=== PATIENT | female | born 2000 | race Caucasian/White ===

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

== ENCOUNTER 2020-06-26 12:19 | Emergency (ER) | payer OTHER, SELFPAY ==
--- OUTSIDE RECORDS SUMMARY | 2020-06-26 12:22 | XMS REPORT | Continuity of Care Document ---
:2000 Author Organization [facility] t Address [address] [place] [address] Care Team Providers Name Role Phone Nathalia GAYLE F Attending Clinician Orlnado GAYLE R Attending Clinician Visit, Nurse Attending Clinician Unavailable Problems Condition Condition Condition Status Onset Resolution Last Treating Co mments Source Name Details Category Date Date Treatment Clinician Date Asthma, Asthma, Problem Active [facility] unspecifie unspecifie Jazmin kes - d asthma d asthma Memori a severity, severity, l unspecifie unspecifie Ou tpati d whether d whether ent complicate complicate Cl inics d, d, unspecifie unspecifie d whether d whether persistent persistent Seasonal Seasonal Problem [facility] allergic [facility] - rhinitis, rhinitis, Magno terrance unspecifie unspecifie l d trigger d trigger Outp ati ent Clinics Migraine Migraine Problem Active [facility] without without [facility] - status status Memoria migrainosu migrainosu l s, not s, not Outpati intractabl intractabl en t e, e, Clinics unspecifie unspecifie d migraine d migraine type type Cervicalgi Cervicalgi Diagnosis Active [facility] - [facility] Out[facility] Clinics Other Other Problem Active [facility] chronic chronic [facility] - pain pain Mem[facility] l Outpati ent Clinics Low back Low back Diagnosis Active [facility] pain pain [facility] Clinics Problem Active [facility] in second in second Luke s - trimester trimester Magno terrance with with l anti-A anti-A Outpati sensitizat sensitizat en t ion, ion, Clinics single or single or unspecifie unspecifie d fetus d fetus Allergic Allergic Problem Active [facility] rhinitis, rhinitis, Luke s - unspecifie unspecifie Me moria d d l seasonalit seasonalit Ou tpati y, y, ent unspecifie unspecifie Cl inics d trigger d trigger Allergies, Adverse Reactions, Alerts Allergy Allergy Status Severity Reaction(s) Onset Inactive Treating Comm ents Source Name Type Date Date Clinician dragonfr Adverse Active Info Not [facility] uit Reaction Available [facility] passionf Adverse Active Info Not [facility] ruit Reaction Available [facility] ent [facility] Medications Ordered Filled Start Stop Current Ordering Indication Dosage Frequency Signature Comments Components Source Medication Medication Date Date Medication? Clinician (SIG) Name Name Fluticasone Fluticasone Yes Crispin 1 spray in [facility] St Propionate Propionate 11-07 Linda each Jazmin kes - 00:00: nostril Memoria 00 [employer] ent [facility] Carbinoxami Carbinoxami 2019- No Crispin [address] [facility] [address] ne Maleate ne Maleate 11-07 Linda as needed [facility] - 00:00: 00:00 Memoria 00 :00 [employer] ent [facility] ProAir HFA ProAir HFA Yes Crispin (Prior [facility] Linda Auth: Rx [facility] - Ref#:[id number] Memoria 6) [employer] ent [facility] Select-OB+D Select-OB+D Yes Crispin (Prior [facility] St NICHOLS NICHOLS Linda Auth: Rx [facility] - Ref#:[id number] Memoria 7) [employer] ent [facility] Procedures This patient has no known procedures. Encounters Start End Encounter Admission Attending Care Care Encounter Source Date/Time Date/Time Type Type Clinicians Facility Department ID 2019-10-25 2019-10-25 Emergency Nathalia [facility] [id number] 12:51:21 16:51:00 Priyank Farfan [id number] [place] [id number] [place] [id number] 2019-09-25 2019-09-25 [id number] 00:00:00 00:00:00 Jonathan Cantu [employer]PORATE COMMUNICATIONS SPECIALIST [id number] REGIONAL [id number] MATERNAL [id number] & CHILD 107 [facility] 2019-08-12 2019-08-12 Nurse Visit, [facility] [id number] 14:42:15 15:14:38 Visit [facility] CORPORATE COMMUNICATIONS SPECIALIST [id number] Nurse [facility] [id number] MATERNAL [id number] & CHILD 107 [facility] 2018-11-07 2018-11-07 [facility] [id number] 15:30:00 15:30:00 [facility] Family Medicine Medicine Outpati ent Clinics Results This patient has no known results.
--- NOTE | 2020-06-26 13:58 | RAD REPORT ---
EXAM DESCRIPTION: RAD - Chest Pa And Lat (2 Views) - 06/26/2020 1:33 pm CLINICAL HISTORY: right pleuritic chest pain;Cough Chest pain. COMPARISON: No comparisons FINDINGS: The lungs are clear. The heart is normal in size. No displaced fractures. IMPRESSION: No acute or concerning finding suspected.
--- NOTE | 2020-06-26 14:31 | ER ---
Nurse's Notes [facility] Name: Tommy Crow Age: 19 yrs Sex: Female : 2000 Arrival Date: 06/26/2020 Time: 12:23 Bed 20 Private MD: Diagnosis: Cough Presentation: 06/26 12:36 Chief complaint: Patient states: reports productive coughing for a week and half that em causes dizziness, denies fever or any other symptoms. Coronavirus screen: Client denies travel out of the [place] in the last 14 days. cough unrelated to allergies. Ebola Screen: Patient negative for fever greater than or equal to 101.5 degrees Fahrenheit, and additional compatible Ebola Virus Disease symptoms Patient denies exposure to infectious person. Patient denies travel to an Ebola-affected area in the 21 days before illness onset. No symptoms or risks identified at this time. Initial Sepsis Screen: Does the patient meet any 2 criteria? No. Patient's initial sepsis screen is negative. Does the patient have a suspected source of infection? No. Patient's initial sepsis screen is negative. Risk Assessment: Do you want to hurt yourself or someone else? Patient reports no desire to harm self or others. Onset of symptoms was June 26, 2020. 12:36 Method Of Arrival: Ambulatory em 12:36 Acuity: SIDNEY 4 em Triage Assessment: 12:45 General: Appears in no apparent distress. uncomfortable, Behavior is cooperative, bp appropriate for age, anxious. Pain: Denies pain. EENT: No deficits noted. Neuro: No deficits noted. Cardiovascular: No deficits noted. Respiratory: Reports shortness of breath cough that is Onset: The symptoms/episode began/occurred at an unknown time. the patient has mild shortness of breath. GI: No signs and/or symptoms were reported involving the gastrointestinal system. : No signs and/or symptoms were reported regarding the genitourinary system. Derm: No deficits noted. Musculoskeletal: No deficits noted. 15:10 Respiratory: the patient has mild shortness of breath. 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 - Social history:: Smoking status: Patient denies any tobacco usage or history of. - Family history:: not pertinent. - Hospitalizations: : No recent hospitalization is reported. Screenin:36 Abuse screen: Denies threats or abuse. Nutritional screening: No deficits noted. em Tuberculosis screening: No symptoms or risk factors identified. Fall Risk None identified. Assessment: 12:36 General: Appears in no apparent distress. comfortable, Behavior is calm, cooperative, em appropriate for age, Denies fever. Pain: Complains of pain in chest Pain currently is 4 out of 10 on a pain scale. Neuro: Level of Consciousness is awake, alert, obeys commands, Oriented to person, place, time, situation, Appropriate for age. Cardiovascular: Capillary refill < 3 seconds Patient's skin is warm and dry. Rhythm is regular. Respiratory: Reports cough that is productive, pain with cough Airway is patent Respiratory effort is even, unlabored, Respiratory pattern is regular, symmetrical, Breath sounds are clear bilaterally. Derm: Skin is intact, is healthy with good turgor, Skin is pink, warm \T\ dry. Musculoskeletal: Capillary refill < 3 seconds, Range of motion: intact in all extremities. 14:03 Reassessment: Patient appears in no apparent distress at this time. Patient and/or em family updated on plan of care and expected duration. Pain level reassessed. Patient is alert, oriented x 3, equal unlabored respirations, skin warm/dry/pink. 15:12 Reassessment: PT D/C HOME AMBULATORY, DX WITH VIRAL URI. bp Vital Signs: 12:36 BP 126 / 63; Pulse 89; Resp 18; Temp 97.9; Pulse Ox 100% on R/A; Weight 54.43 kg; em Height 5 ft. 8 in. (172.72 cm); Pain 7/10; 15:00 BP 117 / 63; Pulse 85; Resp 17; Temp 98; Pulse Ox 100% on R/A; bp 12:36 Body Mass Index 18.25 (54.43 kg, 172.72 cm) em ED Course: 12:23 Patient arrived in ED. ag5 12:36 Patient has correct armband on for positive identification. Placed in gown. em 12:38 Triage completed. em 12:38 Arm band placed on. em 12:39 Bahman Morales, RN is Primary Nurse. em 12:51 Cricket Mauro MD is Attending Physician. rn 13:33 XRAY Chest Pa And Lat (2 Views) In Process Unspecified. EDMS 15:10 No provider procedures requiring assistance completed. Patient did not have IV access iw during this emergency room visit. Administered Medications: No medications were administered Outcome: 14:30 Discharge ordered by . rn 15:10 Discharged to home ambulatory. iw 15:10 Condition: good 15:10 Discharge instructions given to patient, Instructed on discharge instructions, follow up and referral plans. medication usage, Demonstrated understanding of instructions, follow-up care, medications, Prescriptions given X 2. 15:10 Patient left the ED. iw Signatures: Dispatcher [employer] EDWI Bahman Morales, RN Nicky Corral RN RN iw Cricket Mauro MD MD rn Peltier, Brian RN Mary Moon ag5
--- NOTE | 2020-06-26 14:31 | EDPHYS ---
Physician Documentation [facility] Name: Tommy Crow Age: 19 yrs Sex: Female : 2000 Arrival Date: 06/26/2020 Time: 12:23 Bed 20 Private MD: ED Physician Cricket Mauro HPI: 06/26 13:07 This 19 yrs old Female presents to ER via Ambulatory with complaints of rn Asthma Exacerbation, Breathing Difficulty, Cough. 13:07 The patient or guardian reports cough, described as mild, with productive sputum. rn Onset: The symptoms/episode began/occurred 1 week(s) ago. Severity of symptoms: At their worst the symptoms were moderate, in the emergency department the symptoms are unchanged. Modifying factors: The symptoms are alleviated by nothing, the symptoms are aggravated by nothing. Associated signs and symptoms: Pertinent positives: chest pain, Pertinent negatives: fever. The patient has not experienced similar symptoms in the past. The patient has not recently seen a physician. Reports 1 week of cough, productive of dark sputum, now having right sided rib pain when coughing and with deep breath. . 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 - Social history:: Smoking status: Patient denies any tobacco usage or history of. - Family history:: not pertinent. - Hospitalizations: : No recent hospitalization is reported. ROS: 13:10 Constitutional: Negative for fever, chills, and weight loss, Eyes: Negative for injury, rn pain, redness, and discharge, ENT: Negative for injury, pain, and discharge, Neck: Negative for injury, pain, and swelling, Cardiovascular: Negative for palpitations, and edema, Respiratory: Negative for wheezing Abdomen/GI: Negative for abdominal pain, nausea, vomiting, diarrhea, and constipation, MS/Extremity: Negative for injury and deformity, Skin: Negative for injury, rash, and discoloration, Neuro: Negative for headache, weakness, numbness, tingling, and seizure. Exam: 13:10 Constitutional: This is a well developed, well nourished patient who is awake, alert, rn and in no acute distress. Head/Face: Normocephalic, atraumatic. ENT: No stridor Cardiovascular: Regular rate and rhythm. No pulse deficits. Respiratory: Clear bilateral breath sounds. Speaking full sentences. No increased work of breathing, no retractions or nasal flaring. Skin: Warm, dry MS/ Extremity: Pulses equal, no cyanosis. Neurovascular intact. Full, normal range of motion. Equal circumference. Neuro: Awake and alert, GCS 15 Vital Signs: 12:36 BP 126 / 63; Pulse 89; Resp 18; Temp 97.9; Pulse Ox 100% on R/A; Weight 54.43 kg; em Height 5 ft. 8 in. (172.72 cm); Pain 7/10; 15:00 BP 117 / 63; Pulse 85; Resp 17; Temp 98; Pulse Ox 100% on R/A; bp 12:36 Body Mass Index 18.25 (54.43 kg, 172.72 cm) em MDM: 12:51 Patient medically screened. rn 14:29 Differential Diagnosis: Bronchitis Influenza Upper Respiratory Infection Viral Syndrome rn Pneumonia. Data reviewed: vital signs, nurses notes, lab test result(s), radiologic studies, plain films, and as a result, I will discharge patient. Counseling: I had a detailed discussion with the patient and/or guardian regarding: the historical points, exam findings, and any diagnostic results supporting the discharge/admit diagnosis, lab results, radiology results, the need for outpatient follow up, to return to the emergency department if symptoms worsen or persist or if there are any questions or concerns that arise at home. Special discussion: I discussed with the patient/guardian in detail that at this point there is no indication for admission to the hospital. It is understood, however, that if the symptoms persist or worsen the patient needs to return immediately for re-evaluation. ED course: CXR neg for acute infiltrate, no pneumothorax, COVID/flu neg, will dc home with abx and return precautions.. 06/26 13:01 Order name: XRAY Chest Pa And Lat (2 Views); Complete Time: 14:00 rn 06/26 14:44 Order name: COVID-19/FLU A+B; Complete Time: 14:45 EDMS Administered Medications: No medications were administered Disposition: 06/26/20 14:30 Discharged to Home. Impression: Cough. - Condition is Stable. - Discharge Instructions: Nonspecific Chest Pain, Cough, Adult. - Prescriptions for Prednisone 20 mg Oral Tablet - take 3 tablet by ORAL route once daily for 5 days; 15 tablet. Zithromax Z- Gigi 250 mg Oral Tablet - take 1 tablet by ORAL route as directed for 5 days Day 1 - take two (2) tablets one time. Day 2, 3, 4 , 5 take one (1) tablet once daily.; 6 tablet. - Medication Reconciliation Form, Thank You Letter, Antibiotic Education, Prescription Opioid Use, Work release form, Family Work Release form. - Follow up: Private Physician; When: As needed; Reason: Recheck today's complaints, Re-evaluation by your physician. - Problem is new. - Symptoms have improved. Signatures: Dispatcher [employer] EDBahman Lockett RN RN em Williams, Irene, RN RN iw Nieto, Roman, MD MD internet network specialist: (The following items were deleted from the chart) 13:46 13:01 Influenza Screen (A \T\ B)+BA.LAB.BRZ ordered. EDMS EDMS 13:46 13:01 CORONAVIRUS+MR.LAB.BRZ ordered. EDMS EDMS 14:31 14:30 06/26/2020 14:30 Discharged to Home. Impression: Cough. Condition is Stable. rn Forms are Medication Reconciliation Form, Thank You Letter, Antibiotic Education, Prescription Opioid Use. Follow up: Private Physician; When: As needed; Reason: Recheck today's complaints, Re-evaluation by your physician. Problem is new. Symptoms have improved. rn
[2020-06-26 14:44] LABS: SARS-COV-2 RT PCR NEGATIVE (NEGATIVE)
[2020-06-26 15:15] VITALS: BP 126/63; TEMP 97.9; O2SAT 100
== END 2020-06-26 15:10 | disposition home or self-care (01) ==
LOC: ER 12:19
DX: R05 Cough (principal); Z20.822 Contact with and (suspected) exposure to COVID-19; J45.909 Unspecified asthma, uncomplicated
CPT/HCPCS: 0240U; 71046; 99283

== ENCOUNTER 2020-11-30 20:25 | Emergency (ER) | payer SELFPAY ==
--- OUTSIDE RECORDS SUMMARY | 2020-11-30 20:28 | XMS REPORT | Continuity of Care Document ---
:2000 Author Organization [facility] t Address [address] [place] [address] Care Team Providers Name Role Phone Elvin Hopson DO Attending Clinician Pepe Dumont Attending Clinician Doctor Unassigned, Name Attending Clinician Unavailable Problems Condition Condition Condition [...] Not [facility] uit Reaction Available [facility] passionf Adverse Active Info Not [facility] t ruit Reaction Available [facility] Medications Ordered Filled Start Stop Current Ordering Indication Dosage Frequency Signature Comments Components Source Medication Medication Date Date Medication? Clinician (SIG) Name Name Fluticasone Fluticasone Yes Crispin 1 spray in [facility] St Propionate Propionate 11-07 Linda each Ajzmin kes - 00:00: nostril Memoria 00 [facility] ent [facility] Carbinoxami Carbinoxami 2019- No Crispin 1 tablet [facility] St ne Maleate ne Maleate 11-07 Linda as needed [facility] - 00:00: 00:00 Memoria 00 :00 [facility] ent [facility] ProAir HFA ProAir HFA Yes Crispin (Prior [facility] Linda Auth: Rx [facility] - Ref#:[id number] Memoria 6) [facility] Select-OB+D Select-OB+D Yes Crispin (Prior [facility] St NICHOLS NICHOLS Linda Auth: Rx [facility]ukes - Ref#:[id number] Memoria 7) [facility] ent [facility] Procedures This patient has no known procedures. 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
--- NOTE | 2020-11-30 22:31 | ER ---
Nurse's Notes [facility] Name: Tommy Crow Age: 20 yrs Sex: Female : 2000 Arrival Date: 11/30/2020 Time: 20:29 Bed 25 Private MD: Diagnosis: Otitis media, unspecified, right ear Presentation: 11/30 20:43 Chief complaint: Patient states: R ear pain x 3 weeks. on and off. But has been ca1 persistent for the past week. Coronavirus screen: Client denies travel out of the [place] in the last 14 days. At this time, the client does not indicate any symptoms associated with coronavirus-19. Ebola Screen: Patient negative for fever greater than or equal to 101.5 degrees Fahrenheit, and additional compatible Ebola Virus Disease symptoms Patient denies exposure to infectious person. Patient denies travel to an Ebola-affected area in the 21 days before illness onset. No symptoms or risks identified at this time. Initial Sepsis Screen: Does the patient meet any 2 criteria? No. Patient's initial sepsis screen is negative. Does the patient have a suspected source of infection? No. Patient's initial sepsis screen is negative. Risk Assessment: Do you want to hurt yourself or someone else? Patient reports no desire to harm self or others. Onset of symptoms was November 30, 2020. 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 Flu vaccine is up to date. - Social history:: Smoking status: Patient denies any tobacco usage or history of. Screenin:28 Abuse screen: Denies threats or abuse. Denies injuries from another. Nutritional ld1 screening: No deficits noted. Tuberculosis screening: No symptoms or risk factors identified. Fall Risk None identified. Assessment: 22:28 General: Appears in no apparent distress. comfortable, Behavior is calm, cooperative, ld1 appropriate for age. Pain: Complains of pain in left ear Pain does not radiate. Pain currently is 7 out of 10 on a pain scale. Quality of pain is described as aching, throbbing, Pain began X 3 weeks Is continuous. Neuro: Level of Consciousness is awake, alert, obeys commands, Oriented to person, place, time, situation. Cardiovascular: Capillary refill < 3 seconds Patient's skin is warm and dry. Respiratory: Airway is patent Respiratory effort is even, unlabored, Respiratory pattern is regular, symmetrical. GI: Abdomen is flat, non-distended. : No signs and/or symptoms were reported regarding the genitourinary system. EENT: Ear canal clear on left ear. Derm: No signs and/or symptoms reported regarding the dermatologic system. Musculoskeletal: No signs and/or symptoms reported regarding the musculoskeletal system. Vital Signs: 20:43 BP 113 / 73; Pulse 88; Resp 15; Temp 97.6(TE); Pulse Ox 98% on R/A; Weight 61.23 kg ca1 (R); Height 5 ft. 8 in. (172.72 cm) (R); Pain 8/10; 22:28 BP 118 / 75; Pulse 86; Resp 18; Pulse Ox 100% ; ld1 20:43 Body Mass Index 20.53 (61.23 kg, 172.72 cm) ca1 ED Course: 20:29 Patient arrived in ED. wm 20:46 Triage completed. ca1 20:46 Arm band placed on right wrist. ca1 22:19 Ovi Shultz, AMBER is PHCP. pm1 22:19 Joaquim Bustamante MD is Attending Physician. pm1 22:20 Shaye Tovar, BELÉN is Primary Nurse. ld1 22:28 Patient has correct armband on for positive identification. Bed in low position. Call ld1 light in reach. Side rails up X2. Pulse ox on. NIBP on. 22:30 No provider procedures requiring assistance completed. ld1 22:34 Patient did not have IV access during this emergency room visit. intact, bleeding ld1 controlled, No redness/swelling at site. Administered Medications: No medications were administered Outcome: 22:30 Discharge ordered by . pm1 22:34 Discharged to home ambulatory. ld1 22:34 Condition: stable 22:34 Discharge instructions given to patient, Instructed on discharge instructions, follow up and referral plans. medication usage, Demonstrated understanding of instructions, follow-up care, medications. 22:34 Patient left the ED. ld1 Signatures: Ovi Shultz, BUSINESS PROCESS COORDINATOR BUSINESS PROCESS COORDINATOR pm1 Jo Pina, RN RN ca1 Shaye Tovar RN RN ld1 Socorro Julian
--- NOTE | 2020-11-30 22:31 | EDPHYS ---
Physician Documentation [facility] Name: Tommy Crow Age: 20 yrs Sex: Female : 2000 Arrival Date: 11/30/2020 Time: 20:29 Bed 25 Private MD: ED Physician Joaquim Bustamante HPI: 11/30 22:29 This 20 yrs old Female presents to ER via Ambulatory with complaints of Ear pm1 Pain. 22:29 The patient presents with pain. The complaints affect the right ear and left ear. pm1 Onset: The symptoms/episode began/occurred 3 week(s) ago, on and off but constant the past week. Modifying factors: The symptoms are alleviated by nothing, the symptoms are aggravated by loud noise. Associated signs and symptoms: Pertinent positives: allergies, Pertinent negatives: cough, fever, tinnitus, vertigo, vomiting. 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 Flu vaccine is up to date. - Social history:: Smoking status: Patient denies any tobacco usage or history of. ROS: 22:29 Constitutional: Negative for fever, chills, and weight loss. pm1 22:29 Cardiovascular: Negative for chest pain, palpitations, and edema, Respiratory: Negative for shortness of breath, cough, wheezing, and pleuritic chest pain, Abdomen/GI: Negative for abdominal pain, nausea, vomiting, diarrhea, and constipation, MS/Extremity: Negative for injury and deformity, Skin: Negative for injury, rash, and discoloration, Neuro: Negative for headache, weakness, numbness, tingling, and seizure. 22:29 ENT: Positive for ear pain, Negative for sinus congestion, sinus pain, sore throat. 22:29 All other systems are negative. Exam: 22:29 Constitutional: This is a well developed, well nourished patient who is awake, alert, pm1 and in no acute distress. Head/Face: Normocephalic, atraumatic. 22:29 Neck: Trachea midline, no thyromegaly or masses palpated, and no cervical lymphadenopathy. Supple, full range of motion without nuchal rigidity, or vertebral point tenderness. No Meningismus. 22:29 Skin: Warm, dry with normal turgor. Normal color with no rashes, no lesions, and no evidence of cellulitis. MS/ Extremity: Pulses equal, no cyanosis. Neurovascular intact. Full, normal range of motion. 22:29 ENT: External ear(s): are unremarkable, Ear canal(s): are normal, TM's: bulging, on the right, erythema, that is mild, on the right, Examination of the other ear shows no obvious abnormality, Posterior pharynx: no acute changes. 22:29 Cardiovascular: Exam negative for acute changes, Rate: normal, Rhythm: regular, Pulses: no pulse deficits are appreciated. 22:29 Respiratory: Exam negative for acute changes, respiratory distress, shortness of breath. 22:29 Neuro: Exam negative for acute changes, Orientation: Mentation: is normal, Motor: is normal, moves all fours. Vital Signs: 20:43 BP 113 / 73; Pulse 88; Resp 15; Temp 97.6(TE); Pulse Ox 98% on R/A; Weight 61.23 kg ca1 (R); Height 5 ft. 8 in. (172.72 cm) (R); Pain 8/10; 22:28 BP 118 / 75; Pulse 86; Resp 18; Pulse Ox 100% ; ld1 20:43 Body Mass Index 20.53 (61.23 kg, 172.72 cm) ca1 MDM: 22:19 Patient medically screened. pm1 22:29 Data reviewed: vital signs. Data interpreted: Pulse oximetry: on room air is 98 %. pm1 Interpretation: normal. Counseling: I had a detailed discussion with the patient and/or guardian regarding: the historical points, exam findings, and any diagnostic results supporting the discharge/admit diagnosis, the need for outpatient follow up, for definitive care, an ENT specialist, to return to the emergency department if symptoms worsen or persist or if there are any questions or concerns that arise at home. Administered Medications: No medications were administered Disposition: 12/01 13:19 Co-signature as Attending Physician, Joaquim Bustamante MD I agree with the assessment and yudelak plan of care. Disposition Summary: 11/30/20 22:30 Discharge Ordered Location: Home pm1 Problem: new pm1 Symptoms: have improved pm1 Condition: Stable pm1 Diagnosis - Otitis media, unspecified, right ear pm1 Followup: pm1 - With: Emergency Department - When: As needed - Reason: Worsening of condition Followup: pm1 - With: Private Physician - When: 2 - 3 days - Reason: Recheck today's complaints, Continuance of care, Re-evaluation by your physician Discharge Instructions: - Discharge Summary Sheet pm1 - Otitis Media, Adult pm1 Forms: - Medication Reconciliation Form pm1 - Thank You Letter pm1 - Antibiotic Education pm1 - Prescription Opioid Use pm1 Prescriptions: - Amoxicillin 500 mg Oral Capsule - take 1 capsule by ORAL route every 8 hours for 10 days; 30 tablet; Refills: 0, pm1 Product Selection Permitted Signatures: Joaquim Bustamante MD MD cha Marinas, Patrick, NP ENVIRONMENTAL HEALTH MANAGER pm1 Jo Pina RN RN ca1
[2020-11-30 22:53] VITALS: TEMP 97.6
[2020-11-30 22:59] VITALS: BP 118/75; O2SAT 100
== END 2020-11-30 22:34 | disposition home or self-care (01) ==
LOC: ER 20:25
DX: H66.91 Otitis media, unspecified, right ear (principal)
CPT/HCPCS: 99283

== ENCOUNTER 2021-05-19 11:56 | Emergency (ER) | payer SELFPAY ==
--- OUTSIDE RECORDS SUMMARY | 2021-05-19 12:00 | XMS REPORT | Continuity of Care Document ---
:2000 Author Organization [facility] t Address [address] [place] [id number] Care Team Providers Name Role Phone Pepe MILES Primary Care Physician Unavailable Elvin Hopson DO Attending Clinician Pepe Dumont Attending Clinician Pepe MILES Attending Clinician Unavailable Doctor Unassigned, Name Attending Clinician Unavailable SUDHA, Obdulia Attending Clinician Unavailable ADDI, Delvin Attending Clinician Unavailable Maddi MUHAMMAD Attending Clinician Unavailable ADDI, F Admitting Clinician Unavailable Payers Payer Name Policy Type Policy Number Effective Date Expiration Date Jhoana andrade W-[id number] 2019 00:00:00 [place] [facility] [id number] 2018 HEALTH 00:00:00 Problems Condition Condition Condition Status Onset Resolution [...] [facility] Other Other Problem Active [facility] - pain pain [facility] Low back Low back Diagnosis Active [facility] pain pain [facility] Problem Active [facility] in second in second Luke s - trimester trimester Magno terrance with with l anti-A anti-A [facility] sensitizat sensitizat en t ion, ion, Clinics [...] ents Source Name Type Date Date Clinician NO KNOWN Drug Active Univers ALLERGIE Class ity of S [facility] dragonfr Adverse Active Info Not [facility] t uit Reaction Available [facility] passionf Adverse Active Info Not [facility] t ruit Reaction Available [facility] Medications Ordered Filled Start Stop Current Ordering Indication Dosage Frequency Signature Comments Components Source Medication Medication Date Date Medication? Clinician (SIG) Name Name Fluticasone Fluticasone 2018- Yes Crispin 1 spray in [facility] St Propionate Propionate 11-07 Linda each Jazmin kes - 00:00: nostril Memoria 00 [facility] Carbinoxami Carbinoxami 2019- No Crispin [address] [facility] [facility] ne Maleate ne Maleate 11-07 Linda as needed [facility] - 00:00: 00:00 Memoria 00 :00 [facility] ProAir HFA ProAir HFA Yes Crispin (Prior [facility] Linda Auth: Rx [facility] - Ref#:[id number] Memoria 6) [facility] Select-OB+D Select-OB+D Yes Crispin (Prior [facility] Linda Auth: Rx [facility] - Ref#:[id number] Memoria 7) [facility] Procedures This patient has no known procedures. Encounters Start End Encounter Admission Attending Care Care Encounter Source Date/Time Date/Time Type Type Clinicians Facility Department ID 2020-09-09 2020-09-09 Outpatient R [facility] [id number] Univers 08:00:00 08:00:00 [id number] it[facility] 2020-09-07 2020-09-07 Outpatient R [facility] [id number] Univers 08:30:00 08:30:00 [id number] ity [facility] 2020-09-07 2020-09-07 Outpatient R [facility] [id number] Univers 08:30:00 08:30:00 ity [facility] 2020-08-21 2020-08-21 Outpatient R [facility] [id number] Univers 08:30:00 08:30:00 [id number] ity [facility] 2020-08-21 2020-08-21 Outpatient R [facility] [id number] Univers 08:30:00 08:30:00 ity [facility] 2020-08-11 2020-08-11 Patient Mark Anthony [facility] [id number] 00:00:00 00:00:00 Outreach Pranav [facility] [id number] 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 [id number] [facility] [id number] MATERNAL [id number] & CHILD [address] [place] [address] 2020-08-05 2020-08-05 Outpatient R GINGER [facility] [id number] Univers 08:30:00 08:30:00 JONATHAN [id number] ity o f [facility] 2020-08-05 2020-08-05 Outpatient R GINGER [facility] [id number] Univers 08:30:00 08:30:00 JONATHAN ity o f [facility] 2020-08-05 2020-08-05 Orders Doctor TAYLOR [id number] 00:00:00 00:00:00 Only Unassigned, ABBEY [id number] [place] [facility] [id number] 2020-07-21 2020-07-21 [facility] [id number] Univers 07:45:00 07:45:00 ZULEIKA [id number] ity [facility] 2020-07-21 2020-07-21 [facility] [id number] Univers 07:45:00 07:45:00 [facility] 2019-11-04 2019-11-04 Outpatient R [facility] [id number] Univers 08:00:00 08:00:00 [id number] ity [facility] 2019-11-04 2019-11-04 Outpatient R [facility] [id number] Univers 08:00:00 08:00:00 [facility] 2019-10-25 2019-10-25 Emergency X CARIDADYANN, [facility] ERT [id number] Univers 12:51:21 16:51:00 [facility] 2019-10-24 2019-10-24 Outpatient R [facility] [id number] Univers 13:00:00 13:00:00 [id number] ity [facility] 2019-10-24 2019-10-24 Outpatient R [facility] [id number] Univers 13:00:00 13:00:00 ity [facility] 2019-10-07 2019-10-07 Outpatient R GINGER [facility] [id number] Univers 14:00:00 14:00:00 JONATHAN [id number] ity o f [facility] 2019-10-07 2019-10-07 [facility] [id number] Univers 14:00:00 14:00:00 ROSHUNDA ity o f [facility] 2019-08-13 2019-08-13 Outpatient R GINGER [facility] [id number] Univers 08:00:00 08:00:00 POLLOHUNDA ity o f [facility] 2019-08-12 2019-08-12 Outpatient R [facility] [id number] Univers 17:00:00 17:00:00 [id number] ity [facility] 2019-08-12 2019-08-12 Outpatient R GINGER [facility] [id number] Univers 14:15:00 14:15:00 JONATHAN crawley [facility] 2019-04-11 2019-04-11 Outpatient R JB [facility] [id number] Univers 14:00:00 09:39:12 WANG crawley [facility] 2019-04-09 2019-04-09 Outpatient R GINGER [facility] [id number] Univers 10:15:00 10:15:00 JONATHAN [id number] zayra crawley [facility] 2018-11-07 2018-11-07 [facility] [id number] 15:30:00 15:30:00 [facility] Family Medicine Medicine Outpati ent Clinics Results This patient has no known results.
[2021-05-19] MEDS ORDERED: IPRATROPIUM BROM 0.5MG/2.5ML ONE (13:23)
[2021-05-19] MEDS ORDERED: ALBUTEROL 2.5 MG/3 ML NEB SOL ONE (13:23)
--- NOTE | 2021-05-19 15:36 | RAD REPORT ---
EXAM DESCRIPTION: RAD - Chest Single View - 05/19/2021 3:29 pm CLINICAL HISTORY: SOB Chest pain. COMPARISON: Chest Pa And Lat (2 Views) dated 06/26/2020 FINDINGS: Portable technique limits examination quality. The lungs are grossly clear. The heart is normal in size. No displaced fractures. IMPRESSION: No acute intrathoracic process suspected.
[2021-05-19] MEDS ORDERED: METHYLPREDNISOLONE 125 MG INJ ONE (15:57)
[2021-05-19] MEDS ORDERED: LEVALBUTEROL 1.25 MG/3 ML NEB ONE (15:57)
[2021-05-19 16:11] LABS: Absolute Lymphocytes (CBC) 0.5 K/uL (0.7-4.9); Lymphocytes % 7.7 % (15.3-44.8); MPV 8.5 fL (7.6-11.3); RBC Red Blood Cell Count 3.77 M/uL (3.86-4.86)
[2021-05-19 16:27] LABS: Potassium 3.5 mmol/L (3.5-5.1)
[2021-05-19] MEDS ORDERED: ACETAMINOPHEN 500 MG TAB ONE (18:36)
[2021-05-19] MEDS ORDERED: NA CHLORIDE 0.9% 1,000 ML ONE (18:36)
--- NOTE | 2021-05-19 18:52 | EDPHYS ---
Physician Documentation [facility] Name: Tommy Crow Age: 20 yrs Sex: Female : 2000 Arrival Date: 05/19/2021 Time: 11:57 Bed Treatment Private MD: ED Physician Rolando Stone HPI: 05/19 17:02 This 20 yrs old Female presents to ER via Ambulatory with complaints of Chest Pressure, kdr Breathing Difficulty. 17:02 The patient or guardian reports chest pain that is located primarily in the chest kdr diffusely. The pain does not radiate. Associated signs and symptoms: Pertinent positives: palpitations, shortness of breath. The chest pain is described as dull, a heaviness, a pressure. Duration: The patient or guardian reports a single episode, that is still ongoing. Modifying factors: The symptoms are alleviated by nothing. the symptoms are aggravated by nothing. Severity of pain: At its worst the pain was mild in the emergency department the pain is unchanged. The patient has not experienced similar symptoms in the past. The patient has not recently seen a physician. 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 - Social history:: Smoking status: Reported history of juuling and/or vaping. ROS: 17:02 Constitutional: Negative for fever, chills, and weight loss, Eyes: Negative for injury, kdr pain, redness, and discharge, ENT: Negative for injury, pain, and discharge, Neck: Negative for injury, pain, and swelling, Cardiovascular: Negative for chest pain, palpitations, and edema, Abdomen/GI: Negative for abdominal pain, nausea, vomiting, diarrhea, and constipation, Back: Negative for injury and pain, : Negative for injury, bleeding, discharge, and swelling, MS/Extremity: Negative for injury and deformity, Skin: Negative for injury, rash, and discoloration, Neuro: Negative for headache, weakness, numbness, tingling, and seizure activity. Psych: Negative for depression, anxiety, suicide ideation, homicidal ideation, and hallucinations, Allergy/Immunology: Negative for hives, rash, and allergies, Endocrine: Negative for neck swelling, polydipsia, polyuria, polyphagia, and marked weight changes, Hematologic/Lymphatic: Negative for swollen nodes, abnormal bleeding, and unusual bruising. 17:02 Respiratory: Positive for dyspnea on exertion, shortness of breath, at rest. Negative for wheezing. Exam: 17:02 Constitutional: This is a well developed, well nourished patient who is awake, alert, kdr and in no acute distress. Head/Face: Normocephalic, atraumatic. Eyes: Pupils equal round and reactive to light, extra-ocular motions intact. Lids and lashes normal. Conjunctiva and sclera are non-icteric and not injected. Cornea within normal limits. Periorbital areas with no swelling, redness, or edema. Neck: Trachea midline, no thyromegaly or masses palpated, and no cervical lymphadenopathy. Supple, full range of motion without nuchal rigidity, or vertebral point tenderness. No Meningismus. Chest/axilla: Normal chest wall appearance and motion. Nontender with no deformity. No lesions are appreciated. Abdomen/GI: Soft, non-tender, with normal bowel sounds. No distension or tympany. No guarding or rebound. No evidence of tenderness throughout. Back: No spinal tenderness. No costovertebral tenderness. Full range of motion. Skin: Warm, dry with normal turgor. Normal color with no rashes, no lesions, and no evidence of cellulitis. MS/ Extremity: Pulses equal, no cyanosis. Neurovascular intact. Full, normal range of motion. Neuro: Awake and alert, GCS 15, oriented to person, place, time, and situation. Cranial nerves II-XII grossly intact. Motor strength 5/5 in all extremities. Sensory grossly intact. Cerebellar exam normal. Normal gait. Psych: Awake, alert, with orientation to person, place and time. Behavior, mood, and affect are within normal limits. 17:02 Cardiovascular: Rate: tachycardic, Rhythm: regular, Pulses: no pulse deficits are appreciated, Heart sounds: normal, Edema: is not appreciated. 17:02 Respiratory: the patient does not display signs of respiratory distress, Respirations: normal, Breath sounds: wheezing: is not appreciated, Initially slightly diminished air movement. Vital Signs: 13:09 BP 138 / 74; Pulse 125; Resp 26; Temp 98.0; Pulse Ox 100% ; Weight 61.23 kg; Height 5 vg1 ft. 8 in. (172.72 cm); Pain 0/10; 16:49 BP 109 / 51; Pulse 145; Resp 17; Temp 99.7; Pulse Ox 97% on R/A; mh5 19:01 BP 123 / 50; Pulse 120; Resp 16; Temp 99.1(O); Pulse Ox 97% on R/A; mh5 19:38 BP 119 / 53; Pulse 120; lt3 13:09 Body Mass Index 20.53 (61.23 kg, 172.72 cm) vg1 MDM: 18:52 Patient medically screened. [facility] 05/19 13:22 Order name: CBC with Diff; Complete Time: 16:49 kdr 05/19 13:22 Order name: Chem 7; Complete Time: 16:49 kdr 05/19 13:22 Order name: CXR XRAY; Complete Time: 15:52 kdr 05/19 13:22 Order name: D-Dimer; Complete Time: 16:24 kdr 05/19 16:51 Order name: COVID-19 SARS RT PCR (Document "Date of Onset" if Symptomatic) kdr 05/19 16:52 Order name: SARS-COV-2 RT PCR EDMS Administered Medications: 13:30 Drug: Albuterol - atroVENT (ipratropium) (3:1) (2.5 mg - 0.5 mg) 3 ml Route: Nebulizer; jl7 16:00 Drug: SOLU-Medrol (methylPrednisoLONE) 125 mg Route: IVP; Site: left antecubital; jl7 16:20 Drug: Xopenex (levalbuterol) (3) 1.25 mg Route: Inhalation; jl7 18:38 Drug: NS 0.9% 1000 ml Route: IV; Rate: 1 bolus; Site: left antecubital; jl7 18:39 Drug: Tylenol 1000 mg Route: PO; jl7 Disposition Summary: 05/19/21 18:52 Discharge Ordered Location: Home kdr Problem: new kdr Symptoms: have improved kdr Condition: Stable kdr Diagnosis - Moderate persistent asthma with (acute) exacerbation kdr Followup: kdr - With: Private Physician - When: 2 - 3 days - Reason: Recheck today's complaints, Re-evaluation by your physician Discharge Instructions: - Discharge Summary Sheet kdr - Asthma, Adult kdr - COVID-19 kdr - COVID-19: What Your Test Results Mean - [facility] - COVID-19 Frequently Asked Questions kdr - 10 Things You Can Do to Manage Your COVID-19 Symptoms at Home - [facility] [place] - COVID-19: Quarantine vs. Isolation - [facility] [place] kdr Forms: - Medication Reconciliation Form kdr - Thank You Letter kdr - Work release form bb Signatures: Dispatcher [employer] Rolando Johnson MD MD kdr Rod Lyon RN RN jl7 Zoe Hudson RN RN vg1
--- NOTE | 2021-05-19 18:52 | ER ---
Nurse's Notes [facility] Name: Tommy Crow Age: 20 yrs Sex: Female : 2000 Arrival Date: 05/19/2021 Time: 11:57 Bed Treatment Private MD: Diagnosis: Moderate persistent asthma with (acute) exacerbation Presentation: 05/19 13:09 Chief complaint: Patient states: dizziness, cough and congestion began today, pt states vg1 hx of asthma. Denies NVD. Coronavirus screen: Vaccine status: Patient reports receiving the 2nd dose of the covid vaccine. Client denies travel out of the [place] in the last 14 days. Ebola Screen: Patient negative for fever greater than or equal to 101.5 degrees Fahrenheit, and additional compatible Ebola Virus Disease symptoms. Initial Sepsis Screen: Does the patient meet any 2 criteria? RR > 20 per min. HR > 90 bpm. Does the patient have a suspected source of infection? No. Patient's initial sepsis screen is negative. Risk Assessment: Do you want to hurt yourself or someone else? Patient reports no desire to harm self or others. Onset of symptoms was May 19, 2021. 13:09 Method Of Arrival: Ambulatory vg1 13:09 Acuity: SIDNEY 3 vg1 Triage Assessment: 13:10 General: Appears in no apparent distress. uncomfortable, Behavior is cooperative, vg1 anxious. Pain: Denies pain. Cardiovascular: Patient's skin is warm and dry. Respiratory: Airway is patent Respiratory effort is even, labored, Respiratory pattern is tachypnea Breath sounds are clear bilaterally. 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 - Social history:: Smoking status: Reported history of juuling and/or vaping. Assessment: 20:04 Reassessment: Patient is alert, oriented x 3, equal unlabored respirations, skin bb warm/dry/pink. pt seen by this RN at discharge pt verbalized understanding of and agrees to plan of care discharge instructions given pt ambulated with steady gait to exit. Vital Signs: 13:09 BP 138 / 74; Pulse 125; Resp 26; Temp 98.0; Pulse Ox 100% ; Weight 61.23 kg; Height 5 vg1 ft. 8 in. (172.72 cm); Pain 0/10; 16:49 BP 109 / 51; Pulse 145; Resp 17; Temp 99.7; Pulse Ox 97% on R/A; mh5 19:01 BP 123 / 50; Pulse 120; Resp 16; Temp 99.1(O); Pulse Ox 97% on R/A; mh5 19:38 BP 119 / 53; Pulse 120; lt3 13:09 Body Mass Index 20.53 (61.23 kg, 172.72 cm) vg1 ED Course: 11:57 Patient arrived in ED. as 13:10 Triage completed. vg1 13:10 Arm band placed on. vg1 13:18 Rolando Stnoe MD is Attending Physician. kdr 15:29 CXR XRAY In Process Unspecified. EDMS 15:48 D-Dimer Sent. 5 15:48 Chem 7 Sent. [facility] 15:48 CBC with Diff Sent. [facility] 15:48 Initial lab(s) drawn, by ar, sent to lab. Inserted saline lock: 22 gauge in left [facility] antecubital area, using aseptic technique. Blood collected. 15:49 Patient has correct armband on for positive identification. Bed in low position. Call [facility] light in reach. Warm blanket given. Pulse ox on. NIBP on. 15:53 Rod Lyon RN is Primary Nurse. jl7 Administered Medications: 13:30 Drug: Albuterol - atroVENT (ipratropium) (3:1) (2.5 mg - 0.5 mg) 3 ml Route: Nebulizer; jl7 16:00 Drug: SOLU-Medrol (methylPrednisoLONE) 125 mg Route: IVP; Site: left antecubital; jl7 16:20 Drug: Xopenex (levalbuterol) (3) 1.25 mg Route: Inhalation; jl7 18:38 Drug: NS 0.9% 1000 ml Route: IV; Rate: 1 bolus; Site: left antecubital; jl7 18:39 Drug: Tylenol 1000 mg Route: PO; jl7 Outcome: 18:52 Discharge ordered by . tru 20:05 Discharged to home ambulatory. bb 20:05 Condition: stable 20:05 Discharge instructions given to patient, Instructed on discharge instructions, follow up and referral plans. Demonstrated understanding of instructions, follow-up care. 20:05 Patient left the ED. gabriela Signatures: Dispatcher [employer] EDMS Rolando Stone MD MD kdr Martinez, Amelia as Ballard, Brenda RN RN Benita Gaming [facility] Rod Lyon RN RN jl7 Zoe Hudson RN RN vg1 Sandra Zee 3 Corrections: (The following items were deleted from the chart) 13:11 13:10 Respiratory: Airway is patent Respiratory effort is even, labored, Respiratory vg1 pattern is tachypnea vg1
[2021-05-19 20:16] VITALS: O2SAT 97
[2021-05-19 20:18] VITALS: TEMP 99.1
[2021-05-19 20:20] VITALS: BP 119/53
== END 2021-05-19 20:05 | disposition home or self-care (01) ==
LOC: ER 11:56
DX: U07.1 COVID-19 (principal); J45.41 Moderate persistent asthma with (acute) exacerbation
CPT/HCPCS: 36415; 71045; 80048; 85025; 85379; 94640; 96374; 99284; J2930; J7030; U0003